=== PATIENT | female | born 1945 | race Two or more races ===

== ENCOUNTER 2021-02-22 07:25 | Day surgery (SDC) | payer MEDICARE, MEDICAID ==
[~2021-02-22] VITALS: Ht 152.4 cm; Wt 84.8 kg
[~2021-02-22 07:25] MED LIST: ASPI1TAB20 PO; ATO40T PO; CHOL20007 PO; DULO60CA PO; ESOM40CA39 PO; FERR-20 PO; LISI-275 PO; METF-370 PO; PREG100C PO
[2021-02-22] MEDS ORDERED: IODIXANOL 320MG/ML 100ML BTL IV ONE (07:26)
[2021-02-22] MEDS ORDERED: LIDOCAINE 2%HCL (LOCAL ANESTH.) INJ 20ML MDV ONE (07:26)
[2021-02-22] MEDS ORDERED: ANGIOMAX 250 MG VIAL IV ONE (07:46)
[2021-02-22] MEDS ORDERED: HEPARIN SODIUM (PORCINE) 5000 UNITS/ML 1ML VIAL ONE (07:46)
[2021-02-22] MEDS ORDERED: VERAPAMIL 2.5MG/ML INJ 2ML VIAL IV ONE (07:46)
[2021-02-22] MEDS ORDERED: NITROGLYCERIN 5MG/ML 10ML VIAL IV ONE (07:46)
[2021-02-22] MEDS ORDERED: fentaNYL CITRATE 100 MCG/2 ML VL ONE (07:46)
[2021-02-22] MEDS ORDERED: MIDAZOLAM HCL 2MG/2ML 2ml VIAL (1mg/ml) ONE (07:47)
[2021-02-22] MEDS ORDERED: SODIUM CHL 0.9% 50 ML ONE (07:47)
[2021-02-22] MEDS ORDERED: ACETAMINOPHEN 500 MG TAB PO PRN (09:15)
[2021-02-22] MEDS ORDERED: ONDANSETRON HCL 4 MG/2 ML VIAL IV PRN (09:15)
[2021-02-22] MEDS ORDERED: HYDROcodone-ACET 5/325MG TAB PO PRN (09:15)
== END 2021-02-22 10:57 | disposition home or self-care (01) ==
LOC: CATH 07:25
PROVIDERS: ATTEND Internal Medicine Cardiovascular Disease
DX: R94.39 Abnormal result of other cardiovascular function study (principal); I25.10 Atherosclerotic heart disease of native coronary artery without angina pectoris; I12.9 Hypertensive chronic kidney disease with stage 1 through stage 4 chronic kidney disease, or unspecified chronic kidney disease; E11.22 Type 2 diabetes mellitus with diabetic chronic kidney disease; N18.9 Chronic kidney disease, unspecified; E78.5 Hyperlipidemia, unspecified; Z82.49 Family history of ischemic heart disease and other diseases of the circulatory system; Z20.822 Contact with and (suspected) exposure to COVID-19; Z98.890 Other specified postprocedural states; Z79.899 Other long term (current) drug therapy; Z79.82 Long term (current) use of aspirin
CPT/HCPCS: 93458; C1769; C1887; C1894; J1644; J2250; J3010; J3490; J7030; Q9967; U0003; 99152